=== PATIENT | female | born 1980 | race African-American/Black ===

== ENCOUNTER 2017-04-01 16:14 | Emergency (ER) | payer OTHER ==
[~2017-04-01] VITALS: Ht 157.5 cm; Wt 86.4 kg
[~2017-04-01 16:14] MED LIST: CARV6.2579 PO; FURO-151 PO; HYDR-3965 PO; LISI-662 PO
[2017-04-01 16:15] VITALS: BP 108/74
== END 2017-04-01 18:41 | disposition left against medical advice (07) ==
LOC: EMS 16:25
DX: R53.1 Weakness (principal); Z53.21 Procedure and treatment not carried out due to patient leaving prior to being seen by health care provider

== ENCOUNTER 2018-08-26 17:30 | Observation (INO) | payer OTHER ==
[~2018-08-26] VITALS: Ht 157.5 cm; Wt 87.5 kg
[~2018-08-26 17:30] MED LIST changes: -HYDR-3965 PO
[2018-08-26 17:49] VITALS: BP 117/68
[2018-08-26] MEDS ORDERED: RINGERS SOLUTION,LACTATED 1,000 ML IV ONE ×2 (18:06→18:10)
== END 2018-08-26 22:10 | disposition home or self-care (01) ==
LOC: 4S 17:30
PROVIDERS: ADMIT Obstetrics & Gynecology; ATTEND Obstetrics & Gynecology
DX: O62.9 Abnormality of forces of labor, unspecified (principal); Z3A.37 37 weeks gestation of pregnancy
CPT/HCPCS: 81002; G0378; J7120

== ENCOUNTER 2021-11-19 17:25 | Inpatient (IN) | payer MEDICAID, OTHER ==
[~2021-11-19] VITALS: Ht 157.5 cm; Wt 87.5 kg
[~2021-11-19 17:25] MED LIST changes: -LISI-662 PO; +LISI-894 PO
[2021-11-19 19:11] LABS: COVID AG,FIA SOURCE NASOPHARYNGEAL
[2021-11-19 19:13] LABS: BASOPHILS % (AUTO) 0.2 % (0.0-2.0); EOSINOPHILS % (AUTO) 1.8 % (1.0-6.0); HEMATOCRIT 36.9 % (36-46); HEMOGLOBIN 12.2 g/dL (12.0-16.0); LYMPHOCYTES # (AUTO) 1.9 K/uL (1.0-4.8); LYMPHOCYTES % (AUTO) 23.2 % (22.0-44.0); MEAN CORPUSCULAR HEMOGLOBIN 28.8 pg (26.0-34.0); MEAN CORPUSCULAR HGB CONC 32.9 G/dL (31.0-37.0); MEAN CORPUSCULAR VOLUME 88 fL (80-100); MONOCYTES # (AUTO) 0.6 K/uL (0.1-1.0); MONOCYTES % (AUTO) 7.9 % (2.0-9.0); NEUTROPHILS # (AUTO) 5.5 K/uL (1.8-7.7); NEUTROPHILS % (AUTO) 66.9 % (40.0-70.0); PLATELET COUNT (AUTO) 288 K/uL (150-450); RED BLOOD CELL COUNT(AUTO) 4.22 MIL/uL (4.00-5.20); RED CELL DISTRIBUTION WIDTH 15.4 % (11.5-14.5)
[2021-11-19 19:25] LABS: ANION GAP 11 mmol/L (8-16); CALCIUM, TOTAL 8.9 mg/dL (8.8-10.5); CARBON DIOXIDE 26 mmol/L (22-29); CHLORIDE 105 mmol/L (98-107); CREATININE 0.66 mg/dL (0.60-1.30); GLOMERULAR FILTR. RATE CALC > 60 mL/min (>60); GLUCOSE,RANDOM 86 mg/dL (70-110); POTASSIUM 3.5 mmol/L (3.5-5.1); SODIUM SERUM 142 mmol/L (136-145); UREA NITROGEN, BLOOD 9 mg/dL (7-18)
[2021-11-19 19:32] LABS: SALICYLATE 0.6 mg/dL (2.8-20.0)
[2021-11-19 19:33] LABS: ACETAMINOPHEN < 2 mcg/mL (10-30); ALANINE AMINOTRANSFERASE 29 U/L (12-78); ALBUMIN 3.6 g/dL (3.4-5.0); ALKALINE PHOSPHATASE 94 U/L (46-116); ASPARTATE AMINOTRANSFERASE 15 U/L (15-37); BILIRUBIN,TOTAL 0.2 mg/dL (0.1-1.0); TOTAL PROTEIN, SERUM 7.9 g/dL (6.4-8.2)
[2021-11-19] MEDS ORDERED: OLANZapine 5 MG RAPDIS TABLET PO PRN (21:00)
[2021-11-19] MEDS ORDERED: ZOLPIDEM TARTRATE 10 MG TABLET PO PRN (21:00)
[2021-11-19] MEDS ORDERED: LORazepam 2 MG TABLET PO PRN (21:00)
[2021-11-20 11:53] VITALS: BP 127/72
[2021-11-20] MEDS ORDERED: PNEUMOCOCCAL VACCINE POLYVALENT 0.5 ML VIAL [PPSV23] IM. ONE (14:00)
[2021-11-20 16:11] VITALS: BP 122/70
[2021-11-20] MEDS ORDERED: TUBERCULIN, PURIFIED PROTEIN DERIVATIVE 5 TU/0.1 ML SYRINGE ID ONE (17:15)
[2021-11-20] MEDS ORDERED: GuaiFENesin/D-METHORPHAN [SUGAR-FREE] 200-20MG/10 ML SYRUP UDCUP PO PRN (17:15)
[2021-11-20] MEDS ORDERED: MAG HYDROX/AL HYDROX/SIMETH ES 30 ML SUSPENSION UDCUP PO PRN (17:15)
[2021-11-20] MEDS ORDERED: MAGNESIUM HYDROXIDE SUSPENSION 30 ML UDCUP PO PRN (17:15)
[2021-11-20] MEDS ORDERED: PROMETHAZINE HCL 25 MG TABLET PO PRN (17:15)
[2021-11-20] MEDS ORDERED: LOPERAMIDE HCL 2 MG CAPSULE PO PRN (17:15)
[2021-11-20] MEDS ORDERED: ACETAMINOPHEN 325 MG TABLET PO PRN (17:15)
[2021-11-20] MEDS ORDERED: HydrOXYzine PAMOATE 50 MG CAPSULE PO PRN (17:15)
[2021-11-20] MEDS: LURASIDONE HCL 20 MG TABLET PO SCH (20:55)
[2021-11-20] MEDS: MELATONIN 5 MG TABLET PO SCH (20:59)
[2021-11-21 06:12] VITALS: BP 117/68
[2021-11-21 07:36] LABS: B-TYPE NATRIURETIC PEPTIDE < 5 pg/mL (0-100)
[2021-11-21 07:52] LABS: HEMOGLOBIN A1C 5.8 % (3.8-5.6)
[2021-11-21 08:06] VITALS: BP 108/72
[2021-11-21 08:17] LABS: C-REACTIVE PROTEIN QUANT 0.59 mg/dL (0.00-0.30); CHOL/HDL RATIO 2.9 (3.9-5.7); CHOLESTEROL 160 mg/dL (131-200); FREE T4 (FREE THYROXINE) 0.94 ng/dL (0.76-1.46); HDL CHOLESTEROL 56 mg/dL (40-60); LDL CHOL (CALC.) 87 mg/dL (0-130); THYROID STIMULATING HORMONE 0.93 uIU/mL (0.36-3.74); TRIGLYCERIDES 85 mg/dL (15-150)
[2021-11-21] MEDS: NALTREXONE HCL 50 MG TABLET PO SCH (08:26)
[2021-11-21] MEDS: MULTIVITAMINS WITH MINERALS, THERAPEUTIC TABLET PO SCH (08:26)
[2021-11-21] MEDS: OMEGA-3/DHA/EPA/FISH OIL 1,000 MG CAPSULE PO SCH (08:26)
[2021-11-21] MEDS: THIAMINE 100 MG TABLET PO SCH ×2 (08:26→16:44)
[2021-11-21] MEDS: FOLIC ACID 1 MG TABLET PO SCH (08:26)
[2021-11-21 08:50] LABS: RAPID PLASMA REAGIN NONREACTIVE (NONREACTIVE)
[2021-11-21] MEDS ORDERED: MELA5TAB40 PO (14:57)
[2021-11-21] MEDS ORDERED: OMEG-108 PO (14:57)
[2021-11-21] MEDS ORDERED: LURA20TA PO (14:57)
[2021-11-21 16:18] VITALS: BP 113/64
[2021-11-21] MEDS: MELATONIN 5 MG TABLET PO SCH (20:36)
[2021-11-21] MEDS: LURASIDONE HCL 20 MG TABLET PO SCH (20:36)
[2021-11-22 05:55] VITALS: BP 110/68
[2021-11-22 08:38] VITALS: BP 127/76
[2021-11-22] MEDS ORDERED: NALT50TA6 PO (08:40)
[2021-11-22] MEDS ORDERED: NALT50TA PO (08:41)
[2021-11-22] MEDS: FOLIC ACID 1 MG TABLET PO SCH (08:59)
[2021-11-22] MEDS: MULTIVITAMINS WITH MINERALS, THERAPEUTIC TABLET PO SCH (08:59)
[2021-11-22] MEDS: OMEGA-3/DHA/EPA/FISH OIL 1,000 MG CAPSULE PO SCH (08:59)
[2021-11-22] MEDS: THIAMINE 100 MG TABLET PO SCH (08:59)
[2021-11-22] MEDS: NALTREXONE HCL 50 MG TABLET PO SCH (09:00)
== END 2021-11-22 10:45 | disposition home or self-care (01) | DRG 750 ==
LOC: EMS 17:25 → B2S 11-20 08:41
PROVIDERS: ADMIT Psychiatry & Neurology Psychiatry; ATTEND Psychiatry & Neurology Psychiatry
DX: F25.9 Schizoaffective disorder, unspecified (principal); I11.0 Hypertensive heart disease with heart failure; I50.9 Heart failure, unspecified; D64.9 Anemia, unspecified; F06.30 Mood disorder due to known physiological condition, unspecified; F31.9 Bipolar disorder, unspecified; I34.0 Nonrheumatic mitral (valve) insufficiency; Z20.822 Contact with and (suspected) exposure to COVID-19; T50.992A Poisoning by other drugs, medicaments and biological substances, intentional self-harm, initial encounter; Z88.8 Allergy status to other drugs, medicaments and biological substances; Y92.098 Other place in other non-institutional residence as the place of occurrence of the external cause; Z86.59 Personal history of other mental and behavioral disorders; Z56.0 Unemployment, unspecified; Z55.9 Problems related to education and literacy, unspecified; Z59.9 Problem related to housing and economic circumstances, unspecified; Z88.1 Allergy status to other antibiotic agents; Z65.3 Problems related to other legal circumstances; Z63.9 Problem related to primary support group, unspecified
CPT/HCPCS: 80053; 80061; 83036; 83880; 84439; 84443; 84703; 85025; 86140; 86592; 99285; G0480; G0481; Q9967

== ENCOUNTER 2025-02-16 09:06 | Emergency (ER) | payer MEDICAID, OTHER ==
[~2025-02-16] VITALS: Ht 157.5 cm; Wt 86.4 kg
[~2025-02-16 09:06] MED LIST changes: -CARV6.2579 PO; -FURO-151 PO; -LISI-894 PO; +LURA20TA PO; +MELA5TAB40 PO; +NALT50TA6 PO; +OMEG-135 PO
[2025-02-16 09:53] LABS: PLATELET COUNT (AUTO) 324 K/uL (150-450); RED BLOOD CELL COUNT(AUTO) 4.13 MIL/uL (4.00-5.20); RED CELL DISTRIBUTION WIDTH 17.2 % (11.5-14.5); WHITE BLOOD COUNT (AUTO) 8.4 K/uL (4.5-11.0)
[2025-02-16 10:02] LABS: CALCIUM, TOTAL 8.7 mg/dL (8.8-10.5); CREATININE 0.69 mg/dL (0.60-1.30); GLOMERULAR FILTR. RATE CALC > 60 mL/min (>60); GLUCOSE,RANDOM 128 mg/dL (70-110); SODIUM SERUM 139 mmol/L (136-145); UREA NITROGEN, BLOOD 8 mg/dL (7-18)
[2025-02-16 10:10] LABS: TROPONIN I-HIGH SENSITIVITY 8 ng/L (<51)
[2025-02-16 11:48] VITALS: TEMP 98.505320
[2025-02-16] MEDS ORDERED: IBUP-1492 PO (13:15)
[2025-02-16 13:54] VITALS: BP 135/64; PULSE 85; RESP 18; O2SAT 99
== END 2025-02-16 13:57 | disposition home or self-care (01) ==
LOC: EMS 09:39
DX: R07.89 Other chest pain (principal); F32.A Depression, unspecified; Z98.890 Other specified postprocedural states; Z79.899 Other long term (current) drug therapy; Z88.1 Allergy status to other antibiotic agents
CPT/HCPCS: 71045; 80048; 84484; 85025; 93005; 99285; 36415-L1; 36415-TC